=== PATIENT | female | born 1965 | race African-American/Black ===

== ENCOUNTER → 2016-11-03 | Outpatient (CLI) | payer OTHER ==
[~2016-11-03] MED LIST: AMBIEN PO; AMIODARONE PO; AVANDIA PO; COMBIVENT INH14.7 GM INH; COUMADIN PO; FOSINOPRIL PO; KCL PO; LANTUS100 U/ML SUBQ; LASIX PO; LEXAPRO PO; NOVOLOG100 U/ML INJ; PREVACID PO; TOPROL XL PO; VYTORIN PO; ZAROXYLYN PO
--- NOTE | ~2016-11-03 | BD1 ---
[facility] A Service of [facility] & [facility] RADIOLOGY TEXT RESULTS PATIENT: BRET MIN LOCATION: [facility] : 69 UNIT #: [id number] AGE: [address]: Alisson Gill MD SEX: F ORDER DR: [id number] [facility] [address] [place], [place] [address] [id number] O MR#: [id number] Acc #: [id number] NAME: BRET MIN : 1965 SEX: F STUDY DATE/TIME: 11/03/2016 13:10 UNIT: [facility] ROOM: STUDY DESCRIPTION: BD Dexa Bone Dens 1+ Site Attending Physician: Alisson Gill M.D. Referring Physician: Alisson Gill M.D. Ordering Physician: Alisson Gill M.D. Primary Care Physician: Alisson Gill M.D. MEDICAL IMAGING REPORT This report is preliminary unless electronic signature is present EXAM DXA scan HISTORY Long-term Prednisone use. Evaluate for osteoporosis. TECHNIQUE Bone mineral density measurement of the lumbar spine and left hip. FINDINGS In the lumbar spine, bone mineral density averages 0.787 g/cm2 with a T-score of -3.3. In the left hip, total bone mineral density is 0.902 g/cm2 with a T-score of -0.8 and in the femoral neck, it measures 0.652 g/cm2 with a T score of -2.1. IMPRESSION Abnormal examination. Osteoporosis lumbar spine and osteopenia, borderline for osteoporosis, left hip in the femoral neck. Dictated by... Juan Hitchcock M.D. THIS IS AN ELECTRONICALLY VERIFIED REPORT Juan Hitchcock M.D. at 11/05/2016 9:35 AM HALEY/madhu TD: 11/04/2016 22:26 JOB #: [id number] MEDICAL IMAGING REPORT Page 1 of 1 COPY
== END | disposition home or self-care (01) ==
LOC: CWCC 10-30 11:30
DX: Z13.820 Encounter for screening for osteoporosis (principal); M81.0 Age-related osteoporosis without current pathological fracture; M85.88 Other specified disorders of bone density and structure, other site; Z79.52 Long term (current) use of systemic steroids
CPT/HCPCS: 77080